=== PATIENT | female | born 1980 | race Caucasian/White ===

== ENCOUNTER 2023-12-04 15:15 | Outpatient (CLI) | payer MEDICARE, MEDICAID, SELFPAY ==
[2023-12-04 15:40] LABS: Basophils # 0.1 K/mm3 (0-0.2); Basophils % 0.5 % (0.1-2.0); Eosinophils # 0.2 K/mm3 (0.0-0.4); Eosinophils % 2.2 % (0.1-12.0); Hematocrit 43.5 % (37.0-47.0); Hemoglobin 14.7 g/dL (12.2-16.2); Lymphocytes # 2.6 K/mm3 (0.7-4.5); Lymphocytes % 24.8 % (10-50); Mean Corpuscular HGB Conc 33.9 g/dL (31.8-35.4); Mean Corpuscular Hemoglobin 33.2 pg (27.0-31.2); Mean Corpuscular Volume 97.9 fl (81-99); Mean Platelet Volume 10.7 fl (7.4-10.4); Monocytes # 0.7 K/mm3 (0.1-1.0); Monocytes % 6.3 % (1.7-9.3); Neutrophils # 6.9 K/mm3 (1.8-7.8); Neutrophils % 66.2 % (37.0-80.0); Platelet Count 137 K/mm3 (142-424); Red Blood Count 4.44 M/mm3 (4.20-5.40); Red Cell Distribution Width 12.7 % (11.5-17.5); White Blood Count 10.5 K/mm3 (4.8-10.8)
[2023-12-04 15:42] LABS: Albumin Level 4.2 g/dl (3.5-5.0); Chloride 107 mmol/L (98-107); Potassium 4.4 mmoL/L (3.5-5.1); Sodium 136 mmol/L (136-145)
[2023-12-04 15:44] LABS: Bilirubin,Unconjugated 0.4 mg/dL (0.0-1.1); Blood Urea Nitrogen 14 mg/dl (7-17); Estimated Glomerular Filt Rate 109 ml/min (>60); GFR (African American) 131 ML/MIN (>60)
[2023-12-04 15:45] LABS: Alanine Aminotransferase 43 U/L (12-78); Alkaline Phosphatase 133 U/L (38-126); Anion Gap 10.4 mEq/L (5-15); Aspartate Amino Transferase 35 U/L (14-36); Bilirubin,Direct 0.2 mg/dl (0.0-0.4); Bilirubin,Indirect 0.4 mg/dL (0.0-0.9); Bilirubin,Total 0.6 mg/dl (0.2-1.3); Calcium 9.1 mg/dl (8.4-10.2); Carbon Dioxide 23 mmol/L (22.0-30.0); Chol/HDL Ratio 4.4 (1-3.5); Cholesterol 255 mg/dl (140-200); Glucose 105 mg/dl (74-100); HDL Cholesterol 58 mg/dl (40-60); Total Protein,Serum 6.7 g/dl (6.3-8.2); Triglycerides 120 mg/dl (30-150); VLDL Cholesterol 24 mg/dL (0-40)
[2023-12-04 15:57] LABS: Direct LDL Cholesterol 152.14 mg/dL (100-129)
[2023-12-04 16:12] LABS: Free T4 (Free Thyroxine) 0.96 ng/dl (0.78-2.19)
== END 2023-12-04 23:59 | disposition home or self-care (01) ==
LOC: LAB 15:16
PROVIDERS: PCP Family Medicine; Visit Provider Nurse Practitioner
DX: R07.9 Chest pain, unspecified (principal); R53.83 Other fatigue
CPT/HCPCS: 36415; 80048; 80061; 80076; 84439; 84443; 85025

== ENCOUNTER 2023-12-18 13:56 | Outpatient (CLI) | payer MEDICARE, MEDICAID, SELFPAY ==
--- OUTSIDE RECORDS SUMMARY | 2023-12-18 13:59 | XMS_ITS | Clinical Summary ---
Author Organization [facility] , [facility] Address [address] [place] [address] Phone Care Team Providers Care Potline Monitor Name Role Phone Keila BLACK, Ag Unavailable [phone] Barrie Whitmore Unavailable [phone] Reason for Visit and Chief Complaint The Chief Complaint is: Left CTS Problems Includes: Problems addressed during this encounter and other active Problems Current Visit Onset Date Resolved Date Provider Susan gonzalez Status Pain in the Hands 12/11/2023 Carlene Quintanilla Active Last Documented On 10:44AM ; [facility], [facility] Plan of Treatment Treatment options were discussed with the patient after reviewing EMG results with her. We discussed operative and nonoperative treatments. We also discussed injections. She had previous injection on the right hand in the past noting no significant improvement. Left wrist brace to wear at night Recommend [id number] left cubital tunnel brace as well. Rx: MDP for pain and inflammation. Home exercise program with stretches several times a day were discussed with her. Return to clinic in 3 weeks if no improvement - Last Documented On 12/11/2023 12:41PM ; [facility], [facility] Future Appointments Date Time Location Provi adrien Follow Up 12/25[facility]2023 2:[facility] Carlene Tang PA-C Last Documented On 4 11:19AM ; [facility], [facility] Instructions to patient Lose weight Last Documented On 4 11:26AM ; [facility], [facility] Assessments Includes: Assessments from this encounter Findings - Overweight - Last Documented On 12/11/2023 12:41PM ; [facility] Left cubital tunnel syndrome, acute, exacerbated - Last Documented On 12/11/2023 12:41PM ; [facility] Left carpal tunnel syndrome, acute, exacerbated - Last Documented On 12/11/2023 12:41PM ; [facility] Instructions Includes: Instructions from this encounter Instructions to patient Lose weight Last Documented On 4 11:26AM ; [facility] Medical Equipment - Implanted Devices Includes: Current Devices No Medical Equipment Recorded Medications Includes: Medications discussed during this encounter and other current Medications New / Renewed during this visit Carlene Tang PA-C on 12/11/2023 predniSONE 10 MG (21) Oral Tablet Therapy Pack Provider: Carlene stevens PA-C 6 day supply: 21 tablet, 0 refills Diagnosis: Take as directed Pharmacy: [facility] - [address], [address] - Last Documented On 4 11:17AM By Carlene Tang ; [facility] Current Medications (continue as prescribed) Atorvastatin Calcium 10 MG Oral Tablet 11/23/2023 Pr ovider: Diagnosis: Last Documented On 4 11:27AM By Linette Camacho ; [facility] Cyclobenzaprine HCl 5 MG Oral Tablet 11/22/2023 Prov ider: Diagnosis: Last Documented On 4 11:27AM By Linette [facility] Metoprolol Tartrate 25 MG Oral Tablet 11/22/2023 Pro vider: Diagnosis: Last Documented On 4 11:27AM By Linette SALGU[facility] Nitroglycerin 0.4 MG Sublingual Tablet Sublingual 11/06 Provider: Diagnosis: Last Documented On 4 11:27AM By Linette [facility], [facility] Omeprazole 20 MG Oral Capsule Delayed Release 11/07/19 24 Provider: Diagnosis: Last Documented On 4 11:27AM By Linette SALGU[facility] Triamcinolone Acetonide 0.1% External Cream 11/07/2023 Provider: Diagnosis: Last Documented On 4 11:27AM By Linette [facility], [facility] Medications Administered Includes: Administered Medications from this encounter No Administered Medications Recorded Vital Signs Includes: Vital Signs from this encounter Vital Name 12/11/2023 10:56A Height (in) 68 Weight (lb) 225 Body Mass Index 34.2 Body Surface Area 2.1 Pain Level 1 Last Documented: On 12/11/2023 10:56A M ; [facility] Results Includes: Results discussed during this encounter No Results Recorded For Specified Dates History of Present Illness Includes: History of Present Illness from this encounter FABIANO Wallis is a 42 year old female. - Allergy list reviewed - Problem list reviewed - Medication list reviewed This is a 42-year-old female who presents today as a new patient with left hand pain. She complains of numbness and tingling in her entire left hand worsened digits 4 and 5 for the past month. She was seen by her primary care provider who ordered nerve conduction studies. She denies any known injury or trauma. Weakness in dropping things frequently are associated. Symptoms disturb sleep. Her symptoms are intermittent. She has a history of right carpal tunnel syndrome and has had several injections in her right hand in the past noting no significant improvement. She rates her pain a 1/10 today. She describes her pain as burning in nature. Social History Description Last Updated Caffeine use 12/11/2023 Last Documented On 4 12:41PM ; [facility] No recent change in diet 12/11/2023 Last Documented On 4 12:41PM ; [facility] Not exercising regularly 12/11/2023 Last Documented On 4 12:41PM ; [facility] [place] Not using alcohol 12/11/2023 Last Documented On 4 12:41PM ; [facility] Not using drugs 12/11/2023 Last Documented On 4 12:41PM ; [facility] Yes, current smoker. 12/11/2023 Last Documented On 4 12:41PM ; [facility] Smoking Status Unknown Procedures and Surgical History Surgical History Last Updated History of History of Gallbladder 2023 Last Documented On 4 12:41PM ; [facility] History of hysterectomy 12/11/2023 Last Documented On 4 12:41PM ; [facility] Past Surgical History: Port placement Last Documented On 4 12:41PM ; [facility], [facility] Medical History Includes: Medical History addressed during this encounter Description Last Updated History of Anemia 12/11/2023 Last Documented On 4 12:41PM ; [facility], [facility] History of arthritis 12/11/2023 Last Documented On 4 12:41PM ; [facility], [facility] History of diverticulitis of colon 12/10 Last Documented On 4 12:41PM ; [facility] History of Heartburn / Acid Reflux 12/10 Last Documented On 4 12:41PM ; [facility], [facility] History of Hypertension 12/11/2023 Last Documented On 4 12:41PM ; [facility], [facility] History of Irregular Heartbeat 4 Last Documented On 4 12:41PM ; [facility], [facility] Family History Includes: Family History addressed during this encounter Description Last Updated Family history of cancer 12/11/2023 Last Documented On 4 12:41PM ; [facility], [facility] Family history of heart disease 12/11/19 Last Documented On 4 12:41PM ; [facility], [facility] Family history of rheumatoid arthritis 1 02/09/2023 Last Documented On 4 12:41PM ; [facility], [facility] Family history of systemic hypertension 12/11/2023 Last Documented On 4 12:41PM ; [facility], [facility] Review of Systems Includes: Review of Systems from this encounter Systemic: Not feeling tired and no recent weight loss. Recent weight gain. Head: Headache and sinus pain. Eyes: No vision problems and no Cataracts. Glasses/Contacts. No Glaucoma. Otolaryngeal: No hearing loss and no tinnitus. Cardiovascular: Chest pain or discomfort. No palpitations, no Hypertension, and no High Cholesterol. Pulmonary: No daytime asthma symptoms and no chronic cough. No wheezing. Gastrointestinal: Heartburn. No abdominal pain. No Indigestion, no Peptic Ulcer, no GI Stomach Bleed, and no Ulcers. Acid Reflux. Endocrine: No hot flashes, no muscle weakness, no Diabetes, no Hypothyroid, and no Hyperthyroid. Hematologic: No easy bleeding. A tendency for easy bruising and Anemia. Musculoskeletal: Arthritis. No lower back pain. No soft tissue swelling. Pain localized to one or more joints. Neurological: Dizziness. No convulsions and no numbness. Psychological: No anxiety, no emotional lability, no depression, and no insomnia. Not crying for no reason. Skin: No dry skin. No Ulcers, no Scars, and no rash. Allergic and Immunologic: No complaint of seasonal allergic reaction. Mental Status Includes: Mental Status from this encounter Description No anxiety Functional Status Includes: Functional Status from this encounter No Functional Status Recorded Physical Exam Includes: Physical Exam from this encounter Allergies Includes: Active Allergies Substance Type Reaction Onset Date Resolved Date Statu s HYDROcodone-Acetaminophen Allergy 12/11/2023 Active Last Documented On 4 11:27AM ; [facility], [facility] Bactrim Allergy 12/11/2023 Active Last Documented On 4 11:27AM ; [facility], [facility] Encounters Encounter Provider Location Date Check-In Time Check-Out Time Diagnosis Physician Specified Carlene Tang PA-C [facility] [place] 12/11/19 24 10:52AM 11:17AM Overweight Insurance Includes: Active Insurance Policies Plan Name Member ID Group # Subscriber Relationship Effect natalie Dates 1 - BCBS ([place]) Medicare [id number] Rosy Wallis Self 2 - Department For [facility] Based Services [id number] Rosy Wallis Self 02/06/2023 - Unknown Clinical Notes Includes: Clinical Notes from this encounter * Progress note Date Encounter Last Documented by 12/11/2023 Physician Specified Last jameel sven on 12/11/2023; 12:41 PM, Carlene Tang PA-C; [facility], [facility] Active Problems & Conditions - Pain in the Hands Chief Complaint The Chief Complaint is: Left CTS. Referred Here Referred by Jennifer Christie. History of Present Illness Rosy Wallis is a 42 year old female. - Allergy list reviewed - Problem list reviewed - Medication list reviewed This is a 42-year-old female who presents today as a new patient with left hand pain. She complains of numbness and tingling in her entire left hand worsened digits 4 and 5 for the past month. She was seen by her primary care provider who ordered nerve conduction studies. She denies any known injury or trauma. Weakness in dropping things frequently are associated. Symptoms disturb sleep. Her symptoms are intermittent. She has a history of right carpal tunnel syndrome and has had several injections in her right hand in the past noting no significant improvement. She rates her pain a 1/10 today. She describes her pain as burning in nature. Current Medication - Atorvastatin Calcium 10 MG Oral Tablet 30 days, 0 refills - Cyclobenzaprine HCl 5 MG Oral Tablet 10 days, 0 refills - Metoprolol Tartrate 25 MG Oral Tablet 30 days, 0 refills - Nitroglycerin 0.4 MG Sublingual Tablet Sublingual 8 days, 0 refills - Omeprazole 20 MG Oral Capsule Delayed Release 90 days, 0 refills - Triamcinolone Acetonide 0.1% External Cream 30 days, 0 refills Past Medical/Surgical History Diagnoses: Anemia Irregular Heartbeat Heartburn / Acid Reflux Hypertension. Diverticulitis of colon. Arthritis Surgical: - Past Surgical History: Port placement - Hysterectomy - History of Gallbladder Social History Yes, current smoker. Current diet: No recent change in diet. Caffeine use: Caffeine use. Alcohol: Not using alcohol. Drug Use: Not using drugs. Habits: Not exercising regularly. Allergies - Bactrim - HYDROcodone-Acetaminophen Family History Cancer Heart disease Systemic hypertension Rheumatoid arthritis Review Of Systems Systemic: Not feeling tired and no recent weight loss. Recent weight gain. Head: Headache and sinus pain. Eyes: No vision problems and no Cataracts. Glasses/Contacts. No Glaucoma. Otolaryngeal: No hearing loss and no tinnitus. Cardiovascular: Chest pain or discomfort. No palpitations, no Hypertension, and no High Cholesterol. Pulmonary: No daytime asthma symptoms and no chronic cough. No wheezing. Gastrointestinal: Heartburn. No abdominal pain. No Indigestion, no Peptic Ulcer, no GI Stomach Bleed, and no Ulcers. Acid Reflux. Endocrine: No hot flashes, no muscle weakness, no Diabetes, no Hypothyroid, and no Hyperthyroid. Hematologic: No easy bleeding. A tendency for easy bruising and Anemia. Musculoskeletal: Arthritis. No lower back pain. No soft tissue swelling. Pain localized to one or more joints. Neurological: Dizziness. No convulsions and no numbness. Psychological: No anxiety, no emotional lability, no depression, and no insomnia. Not crying for no reason. Skin: No dry skin. No Ulcers, no Scars, and no rash. Allergic and Immunologic: No complaint of seasonal allergic reaction. Physical Findings - Vitals taken 12/11/2023 10:56 am Height 68 in Weight 225 lbs Body Mass Index 34.2 kg/m2 Body Surface Area 2.1 m2 Pain Level 1 Patient is well-dressed and well-groomed. Normal mood and affect. Left upper extremity is evaluated and revealed no tenderness with the patient about the left wrist joint. She demonstrates normal extension and flexion of her left wrist and elbow joint. Positive Tinel sign left wrist and elbow. 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 2+ radial pulse. Skin reveals no lacerations or abrasions. Tests Left upper extremity nerve conduction studies completed on 12/05/2023 read as 1. 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 2. 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 These were reviewed and used for medical decision making Assessment - Overweight Left cubital tunnel syndrome, acute, exacerbated Left carpal tunnel syndrome, acute, exacerbated Plan StartCited - Other predniSONE 10 MG (21) tablet Take as directed, 6 days, 0 refills EndCited Treatment options were discussed with the patient after reviewing EMG results with her. We discussed operative and nonoperative treatments. We also discussed injections. She had previous injection on the right hand in the past noting no significant improvement. Left wrist brace to wear at night Recommend [id number] left cubital tunnel brace as well. Rx: MDP for pain and inflammation. Home exercise program with stretches several times a day were discussed with her. Return to clinic in 3 weeks if no improvement Counseling/Education - Tobacco use - Use of tobacco assessment performed - Lose weight Care Team - Barrie Whitmore Health Reminders - Assess BMI satisfied 12/11/2023. - Assess Tobacco Use satisfied 12/11/2023. - Follow Up Plan BMI Management satisfied 12/11/2023.
--- OUTSIDE RECORDS SUMMARY | 2023-12-18 13:59 | XMS_ITS | Clinical Summary ---
Author Organization [facility] , [facility] Address [address] [place] [address] Phone Care Team Providers Care Marketing Administrative Assistant Name Role Phone Keila BLACK, Ag Unavailable [phone] Barrie Whitmore Unavailable [phone] Reason for Visit and Chief Complaint BRACE FITTING Problems Includes: Problems addressed during this encounter and other active Problems All Visits Onset Date Resolved Date Provider Condition S tatus Pain in the Hands 12/11/2023 Carlene Quintanilla Active Last Documented On 4 10:44AM ; [facility], [facility] Plan of Treatment Future Appointments Date Time Location Provi adrien Follow Up 12/25/2023 2:30PM [facility] Carlene Tang PA-C Last Documented On 4 11:19AM ; [facility] Assessments Includes: Assessments from this encounter No Assessments Recorded Medical Equipment - Implanted Devices Includes: Current Devices No Medical Equipment Recorded Medications Includes: Medications discussed during this encounter and other current Medications Current Medications (continue as prescribed) Atorvastatin Calcium 10 MG Oral Tablet 11/23/2023 Pr ovider: Diagnosis: Last Documented On 4 11:27AM By Linette Camacho ; [facility], [facility] Cyclobenzaprine HCl 5 MG Oral Tablet 11/22/2023 Prov ider: Diagnosis: Last Documented On 4 11:27AM By Linette SALGUREO [facility], [facility] Metoprolol Tartrate 25 MG Oral Tablet 11/22/2023 Pro vider: Diagnosis: Last Documented On 4 11:27AM By Linette Camacho ; [facility], [facility] Nitroglycerin 0.4 MG Sublingual Tablet Sublingual 11/06 Provider: Diagnosis: Last Documented On 4 11:27AM By Linette Camacho ; [facility], [facility] Omeprazole 20 MG Oral Capsule Delayed Release 11/07/19 Provider: Diagnosis: Last Documented On 4 11:27AM By Linette Camacho ; [facility] Triamcinolone Acetonide 0.1% External Cream 11/07/2023 Provider: Diagnosis: Last Documented On 4 11:27AM By Linette Camacho ; [facility], [facility] Medications Administered Includes: Administered Medications from this encounter No Administered Medications Recorded Results Includes: Results discussed during this encounter No Results Recorded For Specified Dates History of Present Illness Includes: History of Present Illness from this encounter No History of Present Illness Recorded Social History No Social History Recorded - Smoking Status Unknown Medical History Includes: Medical History addressed during this encounter No Medical History Recorded Family History Includes: Family History addressed during this encounter No Family History Recorded Review of Systems Includes: Review of Systems from this encounter No Review of Systems Recorded Mental Status Includes: Mental Status from this encounter No Mental Status Recorded Functional Status Includes: Functional Status from this encounter No Functional Status Recorded Physical Exam Includes: Physical Exam from this encounter No Physical Exam Recorded Allergies Includes: Active Allergies Substance Type Reaction Onset Date Resolved Date Statu s HYDROcodone-Acetaminophen Allergy 12/11/2023 Active Last Documented On 4 11:27AM ; [facility], [facility] Bactrim Allergy 12/11/2023 Active Last Documented On 4 11:27AM ; [facility], [facility] Encounters Encounter Provider Location Date Check-In Time Check-Out Time Diagnosis BRACE FITTING Carlene Tang PA-C [facility] 12/11/2023 11:12AM 11:59PM Insurance Includes: Active Insurance Policies Plan Name Member ID Group # Subscriber Relationship Effect natalie Dates 1 - BCBS ([place]) Medicare [id number] Rosy Wallis Self 2 - [facility] For Community Based Services [id number] Rosy Wallis Self 02/06/2023 - Unknown Clinical Notes Includes: Clinical Notes from this encounter No Clinical Notes Recorded
--- OUTSIDE RECORDS SUMMARY | 2023-12-18 13:59 | XMS_ITS ---
Care [facility] - [facility] Created on: December 18, 2023 Rosy Wallis : 1980 Sex: Female Author Organization [facility] Address [address] [place] [address] Phone Care Team Providers Care [employer] Name Role Phone Keila BLACK, Ag Unavailable [phone] Barrie Whitmore Unavailable [phone]
--- OUTSIDE RECORDS SUMMARY | 2023-12-18 13:59 | XMS_ITS ---
Author Organization [facility] Address [address] [place] [address] Phone Care Team Providers Care Embalmer Apprentice Name Role Phone Keila BLACK, Ag Unavailable [phone] Barrie Whitmore Unavailable [phone] Problems Includes: Active, inactive, and resolved Problems All Visits Onset Date Resolved Date Provider Condition S tatus Pain in the Hands 12/11/2023 Carlene Quintanilla Active Last Documented On 4 10:44AM ; [facility] Plan of Treatment Future Appointments Date Time Location Provi adrien Follow Up 12/25/2023 2:30PM [facility] Carlene Tang PA-C Last Documented On 4 11:19AM ; [facility] Instructions to patient Lose weight Last Documented On 4 11:26AM ; [facility] Assessments Includes: Assessments for all patient encounters Findings Encounter Date Overweight Physician Specified with Carlene Tang PA-C 12/11/2023 Last Documented On 4 12:41PM ; [facility] Instructions Includes: Instructions for all patient encounters Instructions to patient Lose weight Last Documented On 4 11:26AM ; [facility] Medical Equipment - Implanted Devices Includes: Current and historical Devices No Medical Equipment Recorded Medications Includes: Current and historical Medications Current Medications (continue as prescribed) Atorvastatin Calcium 10 MG Oral Tablet 11/23/2023 Pr ovider: Diagnosis: Last Documented On 4 11:27AM By Linette Camacho ; [facility] Cyclobenzaprine HCl 5 MG Oral Tablet 11/22/2023 Prov ider: Diagnosis: Last Documented On 4 11:27AM By Linette Camacho ; [facility] Metoprolol Tartrate 25 MG Oral Tablet 11/22/2023 Pro vider: Diagnosis: Last Documented On 4 11:27AM By Linette Camacho ; [facility] Nitroglycerin 0.4 MG Sublingual Tablet Sublingual 11/06 Provider: Diagnosis: Last Documented On 4 11:27AM By Linette Camacho ; [facility] Omeprazole 20 MG Oral Capsule Delayed Release 11/07/19 24 Provider: Diagnosis: Last Documented On 4 11:27AM By Linette Camacho ; [facility] Triamcinolone Acetonide 0.1% External Cream 11/07/2023 Provider: Diagnosis: Last Documented On 4 11:27AM By Linette Camacho ; [facility] Past Medications on file predniSONE 10 MG (21) Oral Tablet Therapy Pack 12/11/2023 - 12/17/2023 Provider: Carlene Tang PA-C Diagnosis: Take as directed Last Documented On 4 11:17AM By Carlene Tang ; [facility] Medications Administered Includes: Administered Medications in patient's chart No Administered Medications Recorded Vital Signs Includes: Vital Signs from 12/17/2022 through 12/18/2023 Vital Name 12/11/2023 10:56A Height (in) 68 Weight (lb) 225 Body Mass Index 34.2 Body Surface Area 2.1 Pain Level 1 Last Documented: On 12/11/2023 10:56A M ; [facility] Results Includes: Results from 12/17/2022 through 12/18/2023 No Results Recorded For Specified Dates History of Present Illness History of Present Illness not supported for this document type No History of Present Illness Recorded Social History Description Last Updated Caffeine use 12/11/2023 Last Documented On 4 12:41PM ; [facility] No recent change in diet 12/11/2023 Last Documented On 4 12:41PM ; [facility] Not exercising regularly 12/11/2023 Last Documented On 4 12:41PM ; [facility] Not using alcohol 12/11/2023 Last Documented On 4 12:41PM ; [facility] Not using drugs 12/11/2023 Last Documented On 4 12:41PM ; [facility] Yes, current smoker. 12/11/2023 Last Documented On 4 12:41PM ; [facility] Smoking Status Unknown Procedures and Surgical History Surgical History Last Updated History of History of Gallbladder 2023 Last Documented On 4 12:41PM ; [facility] History of hysterectomy 12/11/2023 Last Documented On 4 12:41PM ; [facility] Past Surgical History: Port placement Last Documented On 4 12:41PM ; [facility] Medical History Includes: Medical History in patient's chart Description Last Updated History of Anemia 12/11/2023 Last Documented On 4 12:41PM ; [facility] History of arthritis 12/11/2023 Last Documented On 4 12:41PM ; [facility] History of diverticulitis of colon 12/10 Last Documented On 4 12:41PM ; [facility] History of Heartburn / Acid Reflux 12/10 Last Documented On 4 12:41PM ; [facility] History of Hypertension 12/11/2023 Last Documented On 4 12:41PM ; [facility] History of Irregular Heartbeat 4 Last Documented On 4 12:41PM ; [facility] Family History Includes: Family History in patient's chart Description Last Updated Family history of cancer 12/11/2023 Last Documented On 4 12:41PM ; [facility] Family history of heart disease 12/11/19 Last Documented On 4 12:41PM ; [facility] Family history of rheumatoid arthritis 1 02/09/2023 Last Documented On 4 12:41PM ; [facility] Family history of systemic hypertension 12/11/2023 Last Documented On 12:41PM ; [facility] Review of Systems Review of Systems not supported for this document type No Review of Systems Recorded Mental Status No Mental Status Recorded Functional Status No Functional Status Recorded Physical Exam Physical Exam not supported for this document type No Physical Exam Recorded Allergies Includes: Active, inactive, and resolved Allergies Substance Type Reaction Onset Date Resolved Date Statu s HYDROcodone-Acetaminophen Allergy 12/11/2023 Active Last Documented On 4 11:27AM ; [facility] Bactrim Allergy 12/11/2023 Active Last Documented On 4 11:27AM ; [facility] Encounters Includes: Encounters from 12/17/2022 through 12/18/2023 Encounter Provider Location Date Check-In Time Check-Out Time Diagnosis [employer]TING Carlene Tang PA-C [facility] 12/11/19 24 11:12AM 11:59PM Physician Specified Carlene Tang PA-C [facility] 12/11/19 24 10:52AM 11:17AM Overweight Insurance Includes: Active Insurance Policies Plan Name Member ID Group # Subscriber Relationship Effect natalie Dates 1 - BCBS ([place]) Medicare [id number] Rosy Wallis Self 2 - [facility] For [facility] [id number] Rosy Wallis Self 02/06/2023 - Unknown Clinical Notes Includes: Signed Clinical Notes starting from 01/20/2022 * Progress note Date Encounter Last Documented by 12/11/2023 Physician Specified Last documen sven on 12/11/2023; 12:41 PM, Carlene Tang PA-C; [facility] Active Problems & Conditions [...] Positive Tinel sign left wrist and elbow. [employer] strength is 4/5. 2+ radial pulse. Skin [...] wrist brace to wear at night Recommend [id number] left cubital tunnel brace as well. Rx: [...]
--- NOTE | 2023-12-18 14:00 | CA_ITS ---
APPROVED REPORT EXAM: Comprehensive 2D, Doppler, and color-flow Echocardiogram Vocational Guidance Counselor: Neva Garcia RT(R) Ht: 5 ft 8 in Wt: 227lbs BSA: 2.16 BP: 134/92 mmHg Indications: CP, smoker, HTN, hyperlipidemia, lupus, oliver syndrome, SMITH 2D Dimensions LA Volume 33.70 mL LA Volume Index 15.60 mL/m2 (M/F) 16-34 EF AP4 40.20 % GL Strain -13.3 % M-Mode Dimensions RVDd 2.66 cm (0.9-2.6) LA Diam 3.74 cm (1.9-4.0) LVDd 4.41 cm (3.5-5.7) LVDs 3.34 cm (3.5-5.7) IVSd 0.72 cm (0.6-1.1) PWd 0.72 cm (0.6-1.1) EF (Teich) 48.50% FS 24.30% EDV (Teich) 88.20 mL ESV (Teich) 45.40 mL LV Diastology E Decel Time 217 (160-240 msec) E/A Ratio 0.88 Mitral Valve MV A Velocity 60.0 (40-130 cm/s) E/A Ratio 0.88 Left Ventricle The left ventricle is normal size. The left ventricular systolic function is normal. The left ventricular ejection fraction is within the normal range. There is increased LV wall thickness. There is normal LV segmental wall motion. The left ventricular diastolic function is normal. LVEF is 50-55%. Right Ventricle The right ventricle is normal size. The right ventricular systolic function is normal. Atria The left atrium size is normal. The right atrium size is normal. There is no Doppler evidence of interatrial shunt. Aortic Valve The aortic valve is trileaflet. The aortic valve opens well. There is no aortic valvular stenosis. No aortic regurgitation is present. Mitral Valve The mitral valve is normal in structure. No evidence of mitral valve stenosis. There is no mitral valve regurgitation noted. Tricuspid Valve The tricuspid valve leaflets are thin and pliable. Trace tricuspid regurgitation. Pulmonic Valve The pulmonary valve is grossly normal in structure. Trace pulmonic regurgitation. Great Vessels The aortic root is normal in size. The ascending aorta is normal in size. IVC is normal in size and collapses >50% with inspiration. Pericardium There is no pericardial effusion. Other Information Study Quality: Fair Conclusion Normal biventricular systolic function. No significant valvular stenosis or regurgitation. Electronically signed by : Kiana Ribera MD 12/21/2023 12:24:49
== END 2023-12-18 23:59 | disposition home or self-care (01) ==
LOC: RT 13:57
PROVIDERS: PCP Family Medicine; Visit Provider Nurse Practitioner
DX: R07.9 Chest pain, unspecified (principal); R53.83 Other fatigue; I10 Essential (primary) hypertension; R06.09 Other forms of dyspnea; D69.41 Evans syndrome
CPT/HCPCS: 93306

== ENCOUNTER 2023-12-26 06:49 | Outpatient (CLI) | payer MEDICARE, MEDICAID, SELFPAY ==
--- NOTE | 2023-12-26 | CA_ITS ---
APPROVED REPORT Exam: Pharmacologic Technologist: Zoe Ashley Ht: 5 ft 8 in Wt: 227 lbs BSA: 2.16 m2 HR: 65 bpm BP: 134/90 mmHg Stress Test Details Test: Lexiscan HR Resting HR: 65 bpm Max Heart Rate (APMHR): 175.598637 bpm Max HR Achieved: 102 bpm Target HR (85% APMHR): 148.127154 bpm % of APMHR: 58.29 Recovery HR: 82 bpm BP Resting BP: 134.0/90.0 mmHg Max BP: 137.0/91.0 mmHg Recovery BP: 137.0/91.0 mmHg ECG Stress ECG Conclusion Symptoms: Dyspnea, nausea Arrhythmias/Ectopy: - ST-T Changes: Less than [address] depression. Conclusion: EKG portion unremarkable due to Lexsican infusion. Electronically signed by : Kiana Ribera MD 12/26/2023 12:23:56
--- NOTE | 2023-12-26 07:06 | NM_ITS ---
APPROVED REPORT Exam: Nuclear Stress Test Indication: Chest pain, SOB, Palpitations, High cholesterol, Tobacco use, Family history Patient Location: Outpatient Stress Tech: Zoe Ashley [place] Tech:Faith Romero, ARRT, RT (R)(N) Ht: 5 ft 8 in Wt: 225 lbs Bra Size: D HR: 65 bpm BP: 134/90 mmHg BSA: 2.15 m2 TID: 1.30 BMI: 34.2 History: Chest pain, SOB, Palpitations, High cholesterol, Tobacco use, Family history Procedure: Patient received 0.4 mg of intravenous Lexiscan, resting heart rate 65 bpm, resting blood pressure 134/90 mmHg, with Lexiscan maximum heart rate achieved was 87 bpm which is % of the maximum predicted heart rate and blood pressure was 137/91 mmHg. With Lexiscan, patient denied any complaint of chest pain. Cardiac Stress and Resting SPECT Images: Cardiac Stress and Resting SPECT images were obtained using technetium 99m Myoview 31.2 mCi stress and 10.86 mCi at rest. Resting and stress imaging in supine upon positions demonstrate no evidence of fixed or reversible perfusion defects. There is increase in transient ischemic dilatation ratio (TID 1.30), suggestive of possible multivessel disease or balanced ischemia. Gated imaging demonstrates low normal global and regional LV systolic function. LVEF is calculated 50%. Conclusion: No evidence of fixed or reversible perfusion defects. There is increase in transient ischemic dilatation ratio (TID 1.30), suggestive of possible multivessel disease or balanced ischemia. Gated imaging demonstrates low normal global and regional LV systolic function. LVEF is calculated 50%. In the setting of young age, low normal LVEF, and TID, further evaluation noninvasively with CCTA suggested prior to proceeding with invasive coronary angiography to rule out multivessel disease. Electronically signed by : Kiana Ribera MD 12/26/2023 12:26:06
[2023-12-26] MEDS: ISOTOPE MYOVIEW (PER STUDY) 1 DOSE IV (09:25)
[2023-12-26] MEDS: REGADENOSON 0.4MG/5ML SYRINGE 0.4 MG IV (09:25)
[2023-12-26] MEDS: SODIUM CHLORIDE 0.9% 10ML SYR (RAD ONLY) 10 ML IV ×2 (09:25)
== END 2023-12-26 23:59 | disposition home or self-care (01) ==
LOC: RAD 06:50
PROVIDERS: PCP Family Medicine; Visit Provider Nurse Practitioner
DX: R07.9 Chest pain, unspecified (principal); R53.83 Other fatigue
CPT/HCPCS: 78452; 93017; 93018; A9502; J2785

== ENCOUNTER 2024-01-16 07:33 | Outpatient (CLI) | payer MEDICARE, MEDICAID, SELFPAY ==
[2024-01-16] VITALS (9 sets, daily range): BP systolic 111–139; BP diastolic 66–90; PULSE 59–77; RESP 18; TEMP 36.9; O2SAT 99; BMI 34.8
--- NOTE | 2024-01-16 07:34 | CT_ITS ---
APPROVED REPORT Cosmetic Account Coordinator: CLINICAL INDICATION Chest Pain TECHNIQUE Image Acquisition: A 128 slice MDCT scanner (OxiCoola View) was used for data acquisition. A noncontrast coronary calcium scan was performed. A CT attenuation threshold of 130 Hounsfield units (HU) was used for the detection of calcium in contiguous voxels of 1 sq mm in area to be counted as individual lesions. Bolus tracking in the ascending aorta with a threshold of 180 HU was performed. Immediately afterwards, ECG synchronized cardiac CT was then performed from the cardiac base to apex using retrospective gating with ECG tube current modulation. A total of 85 mL of Isovue 370 mg/mL contrast medium was administered at 5 mL/sec followed by a saline flush using a biphasic injection protocol. A tube voltage of 120 KVp was used. The patient received the following medications prior to the cardiac CT. 100 mg of oral metoprolol 10 mg of intravenous metoprolol 15 mg of oral ivabradine 0.8 mg of sublingual nitroglycerin The average heart rate at the time of acquisition was 47 bpm and regular. Image Reconstruction Transaxial images were reconstructed at 0.67 mm slide thickness. Data was reviewed interactively on an advanced workstation capable of 2 and 3-dimensional displays in all conventional reconstruction formats, including multiplanar reformations, maximum intensity projections, curved multiplanar reformations, and volume rendered reconstructions. When applicable, selected routine images describing the relevant coronary anatomy and pathology were saved and sent to PACS. Complications None Technical Quality Overall image quality was suboptimal due to significant motion and blurring artifact. Coronary artery opacification was adequate. Total DLP (Dose-Length Product) is 1937.2 mGy-cm. The reported value represents the total of one or more individual components during the CT acquisition of this date and at this time, and as such, the same value may appear in more than one CT report depending on the interpreting/reporting physicians. COMPARISON None FINDINGS CT Coronary Calcium Scoring LMA (Left Main Artery) = 11 LAD (Left Anterior Descending) = 152 LCX (Left Coronary Circumflex) = 142 RCA (Right Coronary Artery) = 542 Total Calcium Score = 847 using the AJ-130 method. The observed calcium score of 847is at 99th percentile for subjects of the same age, sex, and race/ethnicity. The interpretation of the calcium heart score is based on the following continuum*: 0 = no calcified plaque detected (risk of coronary artery disease is very low ??? less than 5%) 1-10 = calcium detected in extremely minimal levels (risk of coronary diseases is still low ??? less than 10%) 11-100 = mild levels of plaque detected with certainty (mild or minimal narrowing of heart arteries is likely) 101-400 = definite,at least moderate levels of plaque detected (relatively high risk of a heart attack within 3-5 years) >401-999 = extensive levels of plaque detected (high risk of heart attack, high levels of vascular disease are present, high likelihood of at least one significant coronary narrowing) *The calcium heart score quantifies the burden of coronary calcification/plaque in the coronary arteries. The calcium heart score is not able to evaluate the presence or burden of non-calcified (i.e. soft) plaque. There is no identifiable calcification in the aortic valve, mitral annulus or mitral valve, pericardium, or myocardium. Coronary CT Angiography The coronary arterial system is right dominant. Quantitative Stenosis Grading: Left Main (LM): The left main originates normally from the left sinus of Valsalva. The LM bifurcates into the left anterior descending artery and left circumflex artery. There is mixed calcified/noncalcified plaque in the proximal LM segment with < 25% luminal stenosis. Left Anterior Descending (LAD) and Diagonal Branches: The LAD gives off 3 diagonal branch(es). There is mixed calcified/noncalcified plaque in the proximal and mid LAD segments, with up to 50 to 70% luminal stenosis. There is no evidence of LAD-myocardial bridge. Left Circumflex (LCX) and Obtuse Marginals (OM): The LCX gives off 1 Obtuse Marginal (OM) branch(es). There is mixed calcified/noncalcified plaque in the proximal LCx segment with up to 50 to 70% luminal stenosis. Right Coronary Artery (RCA): The RCA originates normally from the right sinus of Valsalva. The RCA gives off a posterior descending artery (PDA) and posterolateral (PL) branches. There is mixed calcified/noncalcified plaque in the proximal RCA segment with up to 70-90% luminal stenosis. Non-Coronary Cardiac Findings: Analysis of the left ventricular (LV) structure and function was performed after 3-D reconstruction of the LV from axial images, with user-corrected automatic contouring for assessment of LV volumes and user-defined reconstruction from oblique planes for measurement of 3-D cardiac structure and function. -The left ventricle systolic function is normal. -There is no left atrial appendage filling defect. Two right pulmonary veins and two left pulmonary veins drain normally into the left atrium. -No pericardial thickening or calcification. -Central and branch pulmonary arteries in the [id number] are unremarkable. -Thoracic aorta within the visualized thoracic aortic-branches in the [id number] is unremarkable. Extracardiac Structures No significant extra-cardiac findings. Note, however, that this study is focused on the cardiac findings. IMPRESSION -Suboptimal image quality due to significant blurring in motion artifact. -Presence of coronary calcification with an Agatston score = 847 using the AJ-130 method. -The observed calcium score of 847 is at 99th percentile for subjects of the same age, sex, and race/ethnicity. -Multivessel atherosclerotic coronary disease with possible evidence of significant flow-limiting atherosclerosis, as noted above -CAD-RADS 4A. Management recommendations per ACC/AHA guidelines*, as clinically appropriate. *Recommendations: CAD RADS 0: Reassurance. Consider non-atherosclerotic causes of chest pain. CAD RADS 1: Consider non-atherosclerotic causes of chest pain. Consider preventive therapy and risk factor modification. CAD RADS 2: Consider non-atherosclerotic causes of chest pain. Consider preventive therapy and risk factor modification, particularly for patients with nonobstructive plaque in multiple segments. CAD RADS 3: Consider further functional testing. Consider symptom-guided anti-ischemic and preventive pharmacotherapy as well as risk factor modification per published guideline statements. CAD RADS 4A: Consider further functional testing or invasive coronary angiography with revascularization per published guideline statements. Consider symptom-guided anti-ischemic and preventive pharmacotherapy as well as risk factor modification per published guideline statements. CAD RADS 4B: Invasive coronary angiography recommended with revascularization per published guideline statements. Consider symptom-guided anti-ischemic and preventive pharmacotherapy as well as risk factor modification per published guideline statements. CAD RADS 5: Consider invasive angiography and/or viability assessment with revascularization per published guideline statements. Consider symptom-guided anti-ischemic and preventive pharmacotherapy as well as risk factor modification per published guideline statements. CRITICAL RESULT None COMMUNICATION Per this written report The coronary and cardiac findings of this CCTA were reviewed, reported, and signed by Art Ribera MD (Transportation Dispatch Manager) Conclusion Electronically signed by : Kiana Ribera MD 01/17/2024 13:10:40
[2024-01-16 08:20] LABS: Chloride 111 mmol/L (98-107); Sodium 139 mmol/L (136-145)
[2024-01-16] MEDS: METOPROLOL TARTRATE 50MG TABLET PO ×2 (08:21→09:12)
[2024-01-16] MEDS: IVABRADINE HCL 7.5MG TABLET PO (08:21)
[2024-01-16 08:23] LABS: Blood Urea Nitrogen 17 mg/dl (7-17); Creatinine Clearance Estimated 166 mL/min (50-200); Estimated Glomerular Filt Rate 90 ml/min (>60); GFR (African American) 109 ML/MIN (>60)
[2024-01-16 08:24] LABS: Calcium 8.9 mg/dl (8.4-10.2); Carbon Dioxide 25 mmol/L (22.0-30.0); Glucose 117 mg/dl (74-100)
[2024-01-16] MEDS: METOPROLOL TARTRATE 5MG/5ML VIAL 5 MG IV ×2 (10:17→10:27)
[2024-01-16] MEDS: NITROGLYCERIN 0.4MG SL TABLET SL (10:42)
[2024-01-16] MEDS: SODIUM CHLORIDE 0.9% 10ML SYR (RAD ONLY) 10 ML IV (11:52)
[2024-01-16] MEDS: IOPAMIDOL-370 (76%);100ML BOTTLE 85 ML IV (11:52)
[2024-01-16] MEDS: 0.9 % SODIUM CHLORIDE 50 ML VIAL IV (11:52)
== END 2024-01-16 11:11 | disposition home or self-care (01) ==
PROVIDERS: PCP Family Medicine; Visit Provider Nurse Practitioner
DX: R94.30 Abnormal result of cardiovascular function study, unspecified (principal); I10 Essential (primary) hypertension; R07.9 Chest pain, unspecified
CPT/HCPCS: 75574; 80048; Q9967

== ENCOUNTER 2024-01-18 09:19 | Day surgery (SDC) | payer MEDICARE, MEDICAID, SELFPAY ==
[2024-01-18] VITALS (11 sets, daily range): BP systolic 133–167; BP diastolic 78–112; PULSE 57–83; RESP 16–20; TEMP 36.6; O2SAT 95–97; BMI 35.2
--- NOTE | 2024-01-18 07:26 | IR_ITS ---
APPROVED REPORT [facility] Night Auditor: Barrie Williamson, RT (R) PROCEDURES Left heart catheterization Left ventriculogram Selective coronary angiogram Intravascular ultrasound of the right coronary artery Intravascular ultrasound of the left main artery and LAD Drug-eluting stent deployment to the proximal circumflex artery Drug-eluting stent deployment to the first obtuse marginal artery INDICATION Coronary artery disease, Angina pectoris, Abnormal CCTA, Angiographic ambiguity involving the right coronary artery left main artery and LAD Informed consent was obtained prior to the procedure. COMPLICATIONS None Estimated Blood Loss: Less than 10 mls TECHNIQUE One percent lidocaine used to anesthetize the right anterior aspect of the wrist. The right radial artery was accessed via the Seldinger technique. A 6 [place] sheath was placed in the right radial artery. 2.5 mg of Verapamil, 800 mcg of nitroglycerin, 1mg Lidocaine and 5000 U Heparin were given through the arterial sheath. The 6 [place] JL 3 guide catheter was also used to perform left heart catheterization, left ventriculogram and selective coronary angiogram. At the end the diagnostic angiogram a discussion was made with the referring steel construction worker and angiography was reviewed. A plan was made to perform IVUS and determine if there was significant plaque burden hemodynamic severity and ordered to refer patient to bypass surgery. If this did not exist the angiographic stenosis of the circumflex artery did not meet criteria for revascularization. At this point therapeutic heparin was administered giving a therapeutic ACT and the guide catheter was placed in the right coronary artery followed by Choice PT extra-support wire placed distally. Intravascular ultrasound probe was advanced which demonstrated moderate atherosclerotic plaque with an MLA greater than 4 mm??? throughout the entire right coronary artery. The apparatus was then removed from the right coronary and placed in the left main artery where this procedure was repeated in the left main artery and LAD. The ostial proximal LAD had an MLA of 4.2 mm???. This did not meet hemodynamic nor anatomic significance therefore it was decided not to perform additional studies of the LAD. A Choice PT extra-support wire was placed into the circumflex artery and a 3 mm x 30 mm [place] frontier stent was deployed at 14 sujata reducing the stenosis. An additional 2.5 x 15 mm [place] frontier stent was placed distal to the for stent yet still overlapping into the first obtuse marginal artery and deployed at 18 sujata. The balloon was brought back and deployed at 24 sujata to match the 2 stents. A 3 mm x 12 mm noncompliant balloon was deployed at 24 sujata in the proximal and midportion of the circumflex artery stent. CORY-3 flow was present before and after the procedure at the end of procedure the apparatus was removed the sheath was removed and hemostasis was achieved seeing TR banding patient was transferred to the postop putting in stable condition ANGIOGRAPHIC RESULTS The left main artery Has a distal 30% stenosis The left anterior descending artery Has an ostial 50 to 60% stenosis with an additional proximal eccentric 40% stenosis The circumflex artery Is large nondominant and has an ostial 40% stenosis followed by a proximal concentric 70% stenosis with additional 60 to 70% stenosis in a large first obtuse marginal artery The right coronary artery Is dominant and has proximal and mid vessel 40% calcified stenoses The THOMAS ventriculogram reveals Preserved at 55% The left ventricular end-diastolic pressure 10 to 15 mmHg IMPRESSION Coronary disease as described above Severe stenosis in the proximal circumflex artery with successful stenting reducing lesion to 0% with 1 drug-eluting stent Severe stenosis in the first obtuse marginal artery with successful stenting reducing lesion to 0% with 1 drug-eluting stent Moderate disease in the ostial LAD which is best managed medically Preserved ejection fraction Normal LVEDP PLAN 1. Effient and aspirin 2. LDL less than 55 to be achieved with high intensity statin 3. Avoidance of tobacco products 4. Cardiac rehabilitation 5. Risk factor modification 6. Elective surgery will have to be postponed Electronically signed by : Cuong Cabrales MD 01/18/2024 15:48:25
[2024-01-18 10:26] LABS: Chloride 110 mmol/L (98-107); Sodium 132 mmol/L (136-145)
[2024-01-18 10:27] LABS: Potassium 3.9 mmoL/L (3.5-5.1)
[2024-01-18 10:28] LABS: Basophils # 0.1 K/mm3 (0-0.2); Basophils % 0.8 % (0.1-2.0); Eosinophils # 0.2 K/mm3 (0.0-0.4); Eosinophils % 2.6 % (0.1-12.0); Hematocrit 41.4 % (37.0-47.0); Hemoglobin 13.9 g/dL (12.2-16.2); Lymphocytes # 2.2 K/mm3 (0.7-4.5); Lymphocytes % 27.5 % (10-50); Mean Corpuscular HGB Conc 33.5 g/dL (31.8-35.4); Mean Corpuscular Hemoglobin 32.6 pg (27.0-31.2); Mean Corpuscular Volume 97.3 fl (81-99); Mean Platelet Volume 11.1 fl (7.4-10.4); Monocytes # 0.5 K/mm3 (0.1-1.0); Neutrophils # 5.1 K/mm3 (1.8-7.8); Neutrophils % 63.1 % (37.0-80.0); Platelet Count 121 K/mm3 (142-424); Red Blood Count 4.25 M/mm3 (4.20-5.40); Red Cell Distribution Width 12.9 % (11.5-17.5)
[2024-01-18 10:29] LABS: Anion Gap 4.9 mEq/L (5-15); Blood Urea Nitrogen 11 mg/dl (7-17); Carbon Dioxide 21 mmol/L (22.0-30.0); Creatinine Clearance Estimated 197 mL/min (50-200); Estimated Glomerular Filt Rate 108 ml/min (>60); GFR (African American) 131 ML/MIN (>60)
[2024-01-18 10:30] LABS: Calcium 9.1 mg/dl (8.4-10.2); Glucose 112 mg/dl (74-100)
[2024-01-18] MEDS: VERAPAMIL 2.5MG/ML 2ML VIAL 2.5 MG IV (11:58)
[2024-01-18] MEDS: HEPARIN 1,000 UNITS/ML 10ML VIAL (CATH LAB) 10000 UNIT IV ×3 (11:58→12:57)
[2024-01-18] MEDS: NITROGLYCERIN 800MCG/8ML SYR (CATH LAB) 800 MCG IA ×2 (11:58→12:40)
[2024-01-18] MEDS: LIDOCAINE 1% 10ML MDV 20 ML IJ (11:58)
[2024-01-18] MEDS: HEPARIN 1,000 UNITS/500ML NS (CATH LAB) 3000 UNIT IV (11:59)
[2024-01-18] MEDS: diphenhydrAMINE 50MG/ML VIAL 50 MG IV (11:59)
[2024-01-18] MEDS: 0.9 % SODIUM CHLORIDE 500 ML 25 ML IV (11:59)
[2024-01-18] MEDS: FENTANYL 100MCG/2ML VIAL 50 MCG IV (13:14)
[2024-01-18] MEDS: MIDAZOLAM HCL 1MG/ML 5ML VIAL 1 MG IV (13:15)
[2024-01-18] MEDS: PRASUGREL 10MG TAB 60 MG PO (13:23)
[2024-01-18] MEDS: IOPAMIDOL-370 (76%);100ML BOTTLE 130 ML IV (15:40)
[2024-01-18] MEDS: ACETAMINOPHEN 325MG TAB 650 MG PO (15:44)
[2024-01-18] MEDS: ONDANSETRON 4MG/2ML VIAL 4 MG IV (15:45)
[2024-01-19 07:29] LABS: CATHL Activated Clotting Time 319 SEC (74-125)
== END 2024-01-18 16:08 | disposition home or self-care (01) ==
LOC: CATHLAB 09:20
PROVIDERS: PCP Family Medicine; Visit Provider Internal Medicine
DX: I25.118 Atherosclerotic heart disease of native coronary artery with other forms of angina pectoris (principal); I77.1 Stricture of artery; I10 Essential (primary) hypertension; R93.1 Abnormal findings on diagnostic imaging of heart and coronary circulation; R06.09 Other forms of dyspnea; R07.9 Chest pain, unspecified; Z95.5 Presence of coronary angioplasty implant and graft; F17.210 Nicotine dependence, cigarettes, uncomplicated; Z79.899 Other long term (current) drug therapy
CPT/HCPCS: 36415; 80048; 85025; 85347; 92928; 92929; 92978; 92979; 93458; 99152; 99153; C1725; C1769; C1874; C9600; C9601; J1200; J1642; J1644; J2250; J2405; J3010; Q9967

== ENCOUNTER 2024-01-25 12:18 | Outpatient (CLI) | payer MEDICARE, MEDICAID, SELFPAY ==
[2024-01-25 13:05] LABS: Hematocrit 42.9 % (37.0-47.0); Hemoglobin 14.6 g/dL (12.2-16.2); Mean Corpuscular Volume 97.1 fl (81-99); Red Blood Count 4.42 M/mm3 (4.20-5.40); White Blood Count 9.7 K/mm3 (4.8-10.8)
[2024-01-25 13:06] LABS: Basophils % 0.2 % (0.1-2.0); Eosinophils # 0.2 K/mm3 (0.0-0.4); Eosinophils % 1.6 % (0.1-12.0); Lymphocytes # 2.6 K/mm3 (0.7-4.5); Lymphocytes % 26.8 % (10-50); Mean Platelet Volume 12.6 fl (7.4-10.4); Monocytes % 10.2 % (1.7-9.3); Neutrophils # 5.9 K/mm3 (1.8-7.8); Neutrophils % 60.8 % (37.0-80.0); Platelet Count 147 K/mm3 (142-424); Red Cell Distribution Width 11.9 % (11.5-17.5)
[2024-01-25 14:07] LABS: Blood Urea Nitrogen 13 mg/dl (7-17); Calcium 9.5 mg/dl (8.4-10.2); Estimated Glomerular Filt Rate 108 ml/min (>60); GFR (African American) 131 ML/MIN (>60); Glucose 80 mg/dl (74-100); Sodium 137 mmol/L (136-145)
[2024-01-25 14:08] LABS: Carbon Dioxide 23 mmol/L (22.0-30.0)
[2024-01-25 14:44] LABS: Potassium 4.5 mmoL/L (3.5-5.1)
[2024-01-25 14:45] LABS: Anion Gap 9.5 mEq/L (5-15); Chloride 109 mmol/L (98-107)
== END 2024-01-25 23:59 | disposition home or self-care (01) ==
LOC: LAB 12:20
PROVIDERS: PCP Nurse Practitioner Family; Visit Provider Internal Medicine
DX: D64.9 Anemia, unspecified (principal); Z95.5 Presence of coronary angioplasty implant and graft
CPT/HCPCS: 36415; 80048; 85025